=== PATIENT | female | born 1990 | race Caucasian/White ===

== ENCOUNTER 2021-06-10 18:36 | Emergency (ER) | payer OTHER, SELFPAY ==
--- NOTE | ~2021-06-10 | XR_ITS ---
EXAM: XR knee RT min 4V HISTORY: knee gave out, after hitting it on furniture COMPARISON: None available FINDINGS: Normal mineralization. No fracture or dislocation. No lytic or blastic lesion. Joint space s maintained. No erosion or periosteal change. Soft tissues within normal limits. IMPRESSION: No acute osseous finding in the right knee. Reviewed, dictated and finalized at location K.
[2021-06-10 18:54] VITALS: BP 124/69; PULSE 86; RESP 99; TEMP 36.9
[2021-06-10 19:04] VITALS: BP 124/69; PULSE 86; RESP 99; TEMP 36.9
--- NOTE | 2021-06-10 20:07 | ED.LOWEXIN ---
HPI - Extremity Injury (Lower) General Chief Complaint: Extremity Injury, Lower Stated Complaint: Right Knee Injury Time Seen by Provider: 06/10/21 20:07 Source: patient, RN notes reviewed and old records reviewed Mode of arrival: ambulatory Limitations: no limitations History of Present Illness HPI Narrative: 30 year old female who presents to [facility] care with complaints of right knee pain, Patient states she was going to her son's room in the middle of the night when he fell out of bed and hit her knee on something in the process of hurrying to his room. Patient states this morning her right knee gave out on her and she has had increased pain since. Patient has been taking ibuprofen and has elevated it and probably applied ice states pain is throbbing and aching Related Data Home Medications Medication Instructions Recorded Confirmed lamotrigine 100 mg PO DAILY 06/10/21 06/10/21 metformin 500 mg PO DAILY 06/10/21 06/10/21 sertraline 100 mg PO DAILY 06/10/21 06/10/21 topiramate 25 mg PO HS 06/10/21 06/10/21 Allergies Allergy/AdvReac Type Severity Reaction Status Date / Time No Known Allergies Allergy Verified 06/10/21 18:54 Review of Systems Review of Systems: CONSTITUTIONAL: Denies fever, chills, or sweats. EYES: Denies visual changes, redness, or discharge. ENT: Denies rhinorrhea, congestion, sore throat, or otalgia. CARDIOVASCULAR: Denies chest pain, palpitations, or edema. RESPIRATORY: Denies cough or dyspnea. GASTROINTESTINAL: Denies abdominal pain, nausea, vomiting, or diarrhea. GENITOURINARY: Denies dysuria or hematuria. SKIN: Denies rash or itching. MUSCULOSKELETAL: Denies back pain, positive for right lateral knee joint pain, or myalgia. NEUROLOGIC: Denies headache, numbness, or weakness. PSYCHIATRIC: Positive for anxiety or depression. All systems reviewed & are unremarkable except as noted in HPI and below [facility] Past Medical History Medical History (Updated 06/11/21 @ 21:35 by Cira Reyna NP) Anxiety and depression Migraine Social History Social History (Updated 06/11/21 @ 21:35 by Cira Reyna NP) Smoking status: Never smoker Alcohol intake: current Alcohol use details: social Substance use type: does not use Living arrangements: with family Gender identity (if verbalized by the patient): Female Exam Narrative: GENERAL: Well-appearing, well-nourished, and in no acute distress. HEAD: Normocephalic, atraumatic. EYES: PERRLA and EOMI. ENT: Nares clear, no rhinorrhea or epistaxis. Mucous membranes moist. TMs normal with good light reflex throat pink with no lesions or exudates no tonsillar swelling NECK: Supple. No lymphadenopathy CHEST: Clear to auscultation. No respiratory distress. No cough or congestion SaO2 99% on room air HEART: Regular rate and rhythm. No murmur heard. Normal peripheral pulses. ABDOMEN: Soft, nontender, nondistended, normal active bowel sounds. EXTREMITIES: Normal range of motion. No edema. Pain to lateral aspect of right knee, patient is unable to fully bend or straighten her knee, pain is increased with ambulation. Patient denies any tingling or numbness to her leg or to her foot no acute edema is noted pedal pulses are strong and palpable SKIN: Warm, dry, no rash. NEURO: No focal deficits. Alert and oriented x3. Course Course Level of Care: Express Care Visit Vital Signs Vital signs: Vital Signs Temperature 36.9 C 06/10/21 18:54 Pulse Rate 86 06/10/21 18:54 Respiratory Rate 99 H 06/10/21 18:54 Blood Pressure 124/69 06/10/21 18:54 Temperature 36.9 C 06/10/21 19:04 Pulse Rate 86 06/10/21 19:04 Respiratory Rate 99 H 06/10/21 19:04 Blood Pressure 124/69 06/10/21 19:04 MDM - Extremity Injury (Lower) Differential Diagnosis Differential diagnosis: Likely acute internal derangement of knee and other (Pain right knee, strain right knee, contusion right knee, torn meniscus) Medical Records Attestation: I rev
== END 2021-06-10 20:25 | disposition home or self-care (01) ==
PROVIDERS: Emergency Provider Registered Nurse
DX: M25.561 Pain in right knee (principal); Z79.84 Long term (current) use of oral hypoglycemic drugs
CPT/HCPCS: 73564; 99213; G0463